=== PATIENT | male | born 1975 | race Hispanic/Latino ===

== ENCOUNTER → 2019-11-25 | Outpatient (CLI) | payer OTHER ==
--- NOTE | 2019-11-25 09:55 | REP ---
Clinical: Bilateral elbow pain. Technique: AP, lateral, bilateral oblique views of the right and left elbow. Findings: Examination is age-appropriate bilaterally. No overt arthritic changes. No evidence for acute or healed injury. No effusion. No swelling. Impression: Relatively symmetric age-appropriate bilateral elbow radiographs. Electronically Signed by Ezio George MD 11/25/2019 09:43 A
== END ==
LOC: M RAD 09:02
PROVIDERS: ATTEND Surgery
DX: M25.521 Pain in right elbow (principal); M25.522 Pain in left elbow